=== PATIENT | male | born 1950 | race Caucasian/White ===

== ENCOUNTER 2022-05-04 09:07 | Outpatient (CLI) | payer MEDICARE, SELFPAY ==
[2022-05-04 11:06] LABS: PSA Screen* 0.55 ng/mL (0.10-4.00)
== END 2022-05-04 09:08 | disposition home or self-care (01) ==
PROVIDERS: PCP Family Medicine; Visit Provider Family Medicine
DX: Z12.5 Encounter for screening for malignant neoplasm of prostate (principal)
CPT/HCPCS: 84153

== ENCOUNTER 2023-05-07 09:37 | Outpatient (CLI) | payer MEDICARE, SELFPAY | END 2023-05-07 09:38 | disposition home or self-care (01) | PROVIDERS: PCP Family Medicine; Visit Provider Family Medicine | DX: E78.2 Mixed hyperlipidemia (principal); I10 Essential (primary) hypertension; R35.0 Frequency of micturition; R53.83 Other fatigue | CPT/HCPCS: 80048; 80061; 84153; 84460 ==